=== PATIENT | male | born 1990 | race Hispanic/Latino ===

== ENCOUNTER 2023-05-12 14:40 | Outpatient (CLI) | payer MEDICAID, MEDICARE | END 2023-05-12 14:41 | disposition home or self-care (01) | LOC: SCSMRI 14:40 | PROVIDERS: ATTEND Family Medicine | DX: Z86.69 Personal history of other diseases of the nervous system and sense organs (principal) | CPT/HCPCS: 70553 ==

== ENCOUNTER 2023-06-23 | Outpatient (CLI) | payer MEDICARE | END 2023-06-23 14:02 | disposition home or self-care (01) | DX: N63.20 Unspecified lump in the left breast, unspecified quadrant (principal); N63.10 Unspecified lump in the right breast, unspecified quadrant ==